=== PATIENT | female | born 1970 | race Hispanic/Latino ===

== ENCOUNTER 2019-09-14 09:46 | Outpatient (CLI) | payer BC ==
--- NOTE | 2019-09-14 10:15 | RAD ---
XR Abdomen 2 View HISTORY: Constipation, nausea, vomiting, GERD, bloating, weight loss COMPARISON: None. FINDINGS: No free air or differential air-fluid levels are seen. The bowel gas pattern is unremarkabl e. There is fecal material in the colon. No suspicious calcifications are seen.
--- NOTE | 2019-09-14 10:17 | RAD ---
XR Chest Pa Lat STANDARD HISTORY: Unexplained weight loss COMPARISON: None FINDINGS: The heart size is normal. The lungs are well expanded without focal areas of consolidation, pneumothorax or pleural effusions. A calcified granuloma seen in the right lower lung. IMPRESSION: No radiographic evidence of acute cardiopulmonary process.
== END 2019-09-14 09:47 | disposition home or self-care (01) ==
LOC: BICRAD 09:46
PROVIDERS: ATTEND Internal Medicine Gastroenterology
DX: K59.00 Constipation, unspecified (principal); R63.4 Abnormal weight loss; K21.9 Gastro-esophageal reflux disease without esophagitis; R10.9 Unspecified abdominal pain; R11.2 Nausea with vomiting, unspecified; R14.0 Abdominal distension (gaseous)
CPT/HCPCS: 71046; 74019